=== PATIENT | male | born 1985 | race Caucasian/White ===

== ENCOUNTER 2017-02-16 23:37 | Emergency (ER) | payer SELFPAY ==
[2017-02-16 23:44] VITALS: BP 106/74
[2017-02-16] MEDS ORDERED: Sodium Chloride 0.9% 1,000 ML IV SCH (23:45)
[2017-02-16] MEDS ORDERED: Sodium Chloride 0.9% 10 ML Syringe FLUSH PRN (23:46)
--- NOTE | 2017-02-17 00:15 | EDM.PDOC ---
ED HPI GENERAL MEDICAL PROBLEM - General Chief Complaint: Drug or Alcohol Abuse Stated Complaint: MEDICAL CLEARANCE Time Seen by Provider: 02/16/17 23:45 Source of Information: Reports: Patient, Police, RN Notes Reviewed - History of Present Illness INITIAL COMMENTS - FREE TEXT/NARRATIVE: 31-year-old male has been brought in by [employer] police for medical clearance for alcohol intoxication. That also called police short time ago because patient was acting belligerent and "refusing to leave." He demonstrated agitated behavior to the police as well. They state that they did need to handcuff him to maintain control of patient. they states he was "banging his head against the metal cage of the squad car while en route to the ED." - Related Data Allergies Allergy/AdvReac Type Severity Reaction Status Date / Time No Known Allergies Allergy Verified 02/16/17 23:44 Home Meds: Home Meds . [No Known Home Meds] 04/10/15 [History] Past Medical History Respiratory History: Reports: Other (See Below) Other Respiratory History: exploratory lung surgery Social & Family History - Family History Family Medical History: Unobtainable - Tobacco Use Smoking Status *Q: Current Every Day Smoker Years of Tobacco use: 9 Packs/Tins Daily: 1 Used Tobacco, but Quit: No - Caffeine Use Caffeine Use: Reports: None ED ROS GENERAL - Review of Systems Review Of Systems: Unable To Obtain (Patient is very intoxicated, unable or not wanting to give reliable history) Constitutional: Denies: Weakness - Physical Exam Exam: See Below Exam Limited By: Altered Mental Status (Patient is awake, very sarcastic with his answers when asked simple questions) General Appearance: Other (Patient is awake, very intoxicated, inappropriate with his language) Eye Exam: Bilateral Eye: PERRL Ears: Normal External Exam Nose: Normal Inspection Throat/Mouth: Normal Inspection Head Exam: Atraumatic Neck: Supple Respiratory/Chest: No Respiratory Distress, Lungs Clear Cardiovascular: Regular Rate, Rhythm Neuro Exam (Abbreviated): Alert, Other (Very intoxicated) Extremities: Normal Inspection, Other (Patient did have handcuffs on at the time of my exam) Course - Vital Signs Last Recorded V/S: Last Vital Signs Temp 98.2 F 02/16/17 23:39 Pulse 75 02/16/17 23:39 Resp 18 02/16/17 23:39 BP 106/74 02/16/17 23:39 Pulse Ox 94 L 02/16/17 23:39 - Orders/Labs/Meds Orders: Active Orders 24 hr Category Date Time Status Peripheral IV Care [RC] . DIRECTED Care 02/16/17 23:46 Active Peripheral IV Insertion Adult [OM.PC] Stat Oth 02/16/17 23:46 Ordered Labs: Laboratory Tests 02/17/17 Range/Units 00:02 Ethyl Alcohol 0.33 (0.00) gm% Meds: Medications Discontinued Medications Generic Name Dose Route Start Last Admin Trade Name Freq PRN Reason Stop Dose Admin Sodium Chloride 1,000 mls @ 999 mls/hr 02/16/17 23:45 02/17/17 00:01 Normal Saline IV 999 mls/hr ONETIME TREY Administration Sodium Chloride 10 ml 02/16/17 23:46 02/17/17 00:02 Saline Flush FLUSH 10 ml ASDIRECTED PRN Administration Keep Vein Open - Re-Assessments/Exams Free Text/Narrative Re-Assessment/Exam: 02/17/17 01:43.It Was my plan to infuse at least a liter of normal saline while awaiting EtOH level. However even though handcuffed he somehow managed to "rip his IV out" after about 100 mL of normal saline infused. He began yelling, very disruptive language and behavior. Therefore I asked the police to bring him to the [facility] at that time not wanting to present any further risk to our ED staff. His loud yelling and swearing was also offensive to other patients and family members here in the ED at that time. Departure - Departure Time of Disposition: 00:13 Disposition: Home, Self-Care 01 Condition: Fair Clinical Impression: Alcohol intoxication Qualifiers: Complication of substance-induced condition: with unspecified complication Qualified Code(s): F10.929 - Alcohol use, unspecified with intoxication, unspecified - Discharge Information Instructions: Alcohol Intoxication, [id number] Referrals: PCP,None [Primary Care Provider] - Additional Instructions: A screening medical exam has been done. His vital signs are stable. He is very intoxicated. Other acute medical emergency condition is apparent at this time. We have attempted to give him IV fluid. somehow he managed to rip the IV out. Therefore we are releasing him for detox [facility] the [facility] at this time - My Orders Last 24 Hours: My Active Orders 02/16/17 23:46 Peripheral IV Care [RC] . DIRECTED Peripheral IV Insertion Adult [OM.PC] Stat - Assessment/Plan Last 24 Hours: My Active Orders 02/16/17 23:46 Peripheral IV Care [RC] . DIRECTED Peripheral IV Insertion Adult [OM.PC] Stat
== END 2017-02-17 00:20 | disposition home or self-care (01) ==
LOC: JD.ED 23:37
DX: F10.120 Alcohol abuse with intoxication, uncomplicated (principal); F17.210 Nicotine dependence, cigarettes, uncomplicated
CPT/HCPCS: 36415; 99283; G0480; J7040; J7050; 99282